=== PATIENT | female | born 1945 | race African-American/Black ===

== ENCOUNTER 2020-02-11 21:24 | Inpatient (IN) | payer OTHER ==
[~2020-02-11] VITALS: Ht 175.3 cm; Wt 123.8 kg
[2020-02-11] MEDS ORDERED: DEXTROSE 5% WATER 1,000 ML IV ONE (23:15)
[2020-02-12] VITALS (57 sets, daily range): BP systolic 124–216; BP diastolic 51–127
[2020-02-12] MEDS ORDERED: LABETALOL 5MG/ML SYR 20 MG/4 ML SYRINGE IV ONE (00:07)
[2020-02-12 01:03] LABS: CLARITY URINE CLEAR (CLEAR); COLOR URINE YELLOW (YELLOW); KETONES URINE NEGATIVE (NEGATIVE); LEUKOCYTE ESTERASE URINE NEGATIVE (NEGATIVE); NITRITE URINE NEGATIVE (NEGATIVE); OCCULT BLOOD URINE NEGATIVE (NEGATIVE); PH URINE 6.5 (4.5-8.0); PROTEIN URINE 2+ (NEGATIVE); SPECIFIC GRAVITY URINE 1.015 (1.005-1.030); UROBILINOGEN URINE 0.2 E.U./dL (0.2-1.0)
[2020-02-12 01:08] LABS: EOSINOPHILS % 0.6 % (0.0-5.0); HEMATOCRIT. 36.3 % (36.0-48.0); HEMOGLOBIN. 11.7 g/dL (12.0-16.0); LYMPHOCYTES % 10.4 % (20.0-50.0); MEAN CORPUSCULAR HEMOGLOBIN 25.4 pg (28.0-32.0); MEAN CORPUSCULAR VOLUME 78.9 fL (81.0-99.0); MEAN PLATELET VOLUME 8.9 fl (7.4-10.4); MONOCYTES % 6.7 % (2.0-8.0); NEUTROPHILS % 81.3 % (40.0-76.0); PLATELET 188 x1000/uL (130-400); RED CELL DISTRIBUTION WIDTH 16.1 % (11.6-14.6)
[2020-02-12 01:09] LABS: CHLORIDE 111 mEq/L (98-107)
[2020-02-12 01:11] LABS: PROTHROMBIN TIME 10.5 sec (9.6-11.0)
[2020-02-12 01:14] LABS: ETHANOL BLOOD < 10 mg/dL
[2020-02-12 01:17] LABS: *AMPHETAMINES SCREEN URINE NEGATIVE (NEGATIVE)
[2020-02-12 01:18] LABS: *BARBITURATES SCREEN URINE NEGATIVE (NEGATIVE); *BENZODIAZEPINES SCREEN URINE NEGATIVE (NEGATIVE); *COCAINE SCREEN URINE NEGATIVE (NEGATIVE); METHADONE URINE SCREEN NEGATIVE (NEGATIVE); PHENCYCLIDINE URINE SCREEN NEGATIVE (NEGATIVE)
[2020-02-12 01:19] LABS: CANNABINOID URINE SCREEN NEGATIVE (NEGATIVE); OPIATES URINE SCREEN NEGATIVE (NEGATIVE)
[2020-02-12] MEDS ORDERED: NICARDIPINE 50 MG in SODIUM CHLORIDE 0.9% 230 ML IV PRN (01:45)
[2020-02-12] MEDS ORDERED: NICARDIPINE 40 MG/200 ML PREMIX 200 ML IV PRN (02:00)
[2020-02-12] MEDS ORDERED: ONDANSETRON HCL 4MG/2ML INJ IV PRN (10:30)
[2020-02-12] MEDS ORDERED: ACETAMINOPHEN 325MG TABLET PO PRN (10:30)
[2020-02-12] MEDS ORDERED: DEXTROSE 50% WATER 50ML SYRINGE IV PRN (10:30)
[2020-02-12] MEDS ORDERED: HYDRALAZINE HCL 100MG TABLET PO SCH (10:30)
[2020-02-12] MEDS: AMLODIPINE 10MG TABLET PO SCH (12:39)
[2020-02-12] MEDS: NICARDIPINE 40MG/200ML PREMIX 200 ML IV PRN ×2 (12:40→18:48)
[2020-02-12] MEDS: BLOOD SUGAR DIAGNOSTIC STRIP TEST SCH ×3 (12:50→21:00)
[2020-02-12] MEDS: HYDRALAZINE HCL 100MG TABLET PO SCH ×2 (14:26→21:52)
[2020-02-12] MEDS: INSULIN LISPRO 100 UNITS/ML SUBCUT SCH ×3 (14:26→21:53)
[2020-02-12] MEDS ORDERED: MINO100T3 PO (17:44)
[2020-02-12] MEDS ORDERED: POTA10TA2 PO (17:44)
[2020-02-12] MEDS ORDERED: FURO20TA4 PO (17:44)
[2020-02-12] MEDS ORDERED: GABA-529 MT (17:44)
[2020-02-12] MEDS ORDERED: ASPI-1497 PO (17:44)
[2020-02-12] MEDS ORDERED: CARV25TA47 MT (17:44)
[2020-02-12] MEDS ORDERED: TRAM50TA3 PO (17:44)
[2020-02-12] MEDS ORDERED: AMLO-337 PO (17:44)
[2020-02-12] MEDS: ENOXAPARIN 30MG/0.3ML SYR SUBCUT SCH (21:52)
[2020-02-12] MEDS ORDERED: NICARDIPINE 50 MG in SODIUM CHLORIDE 0.9% 250 ML IV PRN (23:00)
[2020-02-13] VITALS (64 sets, daily range): BP systolic 139–184; BP diastolic 63–93
[2020-02-13 05:54] LABS: EOSINOPHILS % 1.1 % (0.0-5.0); HEMATOCRIT. 36.5 % (36.0-48.0); HEMOGLOBIN. 11.9 g/dL (12.0-16.0); LYMPHOCYTES % 11.6 % (20.0-50.0); MEAN CORPUSCULAR HEMOGLOBIN 25.5 pg (28.0-32.0); MEAN CORPUSCULAR VOLUME 78.3 fL (81.0-99.0); MEAN PLATELET VOLUME 8.1 fl (7.4-10.4); MONOCYTES % 9.1 % (2.0-8.0); NEUTROPHILS % 77.2 % (40.0-76.0); PLATELET 228 x1000/uL (130-400); RED BLOOD CELL COUNT 4.66 mill/uL (4.2-5.4); RED CELL DISTRIBUTION WIDTH 16.6 % (11.6-14.6)
[2020-02-13 06:00] LABS: CHLORIDE 111 mEq/L (98-107)
[2020-02-13] MEDS: BLOOD SUGAR DIAGNOSTIC STRIP TEST SCH ×3 (06:00→20:30)
[2020-02-13] MEDS: HYDRALAZINE HCL 100MG TABLET PO SCH ×2 (06:00→14:17)
[2020-02-13] MEDS: INSULIN LISPRO 100 UNITS/ML SUBCUT SCH ×4 (08:20→20:28)
[2020-02-13] MEDS: ENOXAPARIN 30MG/0.3ML SYR SUBCUT SCH ×2 (09:17→20:28)
[2020-02-13] MEDS: AMLODIPINE 10MG TABLET PO SCH (09:17)
[2020-02-13] MEDS ORDERED: LOSARTAN POTASSIUM 50 MG TABLET PO SCH ×2 (11:00→17:53)
[2020-02-13] MEDS ORDERED: HYDR100T26 PO (11:17)
[2020-02-13] MEDS ORDERED: LOSA50TA41 MT (11:17)
[2020-02-13] MEDS ORDERED: CLONIDINE 0.1MG TABLET PO PRN (20:15)
== END 2020-02-13 21:30 | disposition short-term general hospital (02) | DRG 305 ==
LOC: ER 21:24 → CVICU 02-12 00:38 → EDBEDREQSVC 02-12 02:03 → EDBEDREQTM 02-12 02:03 → EDBEDREQ 02-12 02:03 → EDBEDREQDT 02-12 02:03 → ENRESERV 02-12 09:16 → 6WST 02-13 17:29
PROVIDERS: ADMIT Internal Medicine; ATTEND Internal Medicine
DX: I16.0 Hypertensive urgency (principal); E44.0 Moderate protein-calorie malnutrition; Z68.41 Body mass index [BMI] 40.0-44.9, adult; E11.649 Type 2 diabetes mellitus with hypoglycemia without coma; E66.9 Obesity, unspecified; E87.8 Other disorders of electrolyte and fluid balance, not elsewhere classified; I10 Essential (primary) hypertension; Z71.3 Dietary counseling and surveillance
CPT/HCPCS: 36415; 71045; 80053; 80305; 80320; 81003; 82962; 83605; 84145; 84484; 85025; 93005; 93970; 97116; 97162; 99285; J1650; J1815; J3490; J7050; J7070; G0480

== ENCOUNTER 2021-12-04 12:17 | Inpatient (IN) | payer OTHER ==
[~2021-12-04] VITALS: Ht 167.6 cm; Wt 115.3 kg
[~2021-12-04 12:17] MED LIST: AMLO-337 PO; ASPI-1497 PO; FURO20TA4 PO; GABA-529 MT; HYDR100T26 PO; LOSA50TA41 MT; MINO100T3 PO; POTA10TA2 PO; TRAM50TA3 PO
[2021-12-04 13:04] LABS: HEMATOCRIT. 33.6 % (36.0-48.0); HEMOGLOBIN. 10.5 g/dL (12.0-16.0); MEAN CORPUSCULAR HEMOGLOBIN 23.6 pg (28.0-32.0); MEAN CORPUSCULAR VOLUME 75.2 fL (81.0-99.0); MEAN PLATELET VOLUME 7.9 fl (7.4-10.4); PLATELET 211 x1000/uL (130-400); RED BLOOD CELL COUNT 4.47 mill/uL (4.2-5.4); RED CELL DISTRIBUTION WIDTH 16.4 % (11.6-14.6)
[2021-12-04 13:12] LABS: CHLORIDE 100 mEq/L (98-107)
[2021-12-04 13:15] LABS: INR 1.1; PROTHROMBIN TIME 11.3 sec (9.6-11.0)
[2021-12-04 13:24] LABS: CREATINE KINASE 21 IU/L (26-192); ETHANOL BLOOD < 10 mg/dL
[2021-12-04] MEDS ORDERED: SODIUM CHLORIDE 0.9% 1,000 ML IV ONE (13:30)
[2021-12-04 13:37] LABS: PLATELET ESTIMATE NORMAL
[2021-12-04 14:09] LABS: BG BASE EXCESS -6.4 mmol/L (-2.0-2.0); BG CARBOXYHEMOGLOBIN 0.3 % (0.5-1.5); BG DEOXYHEMOGLOBIN 5.8 % (0.0-5.0); BG FRACTION INSPIRED OXYGEN 21; BG HCO3 ACT 18.3 mmol/L (22.0-26.0); BG METHEMOGLOBIN 0.3 % (0.0-1.5); BG OXYGEN SATURATION 94.2 % (92.0-98.5); BG OXYHEMOGLOBIN 93.6 % (94.0-97.0); BG PCO2 33.2 mmHg (35.0-45.0); BG PH 7.359 (7.350-7.450); BG PO2 75.8 mmHg (75.0-100.0); BG SAMPLE SITE RIGHT BRACHIAL; BG TOTAL HEMOGLOBIN 10.1 g/dL (12.0-18.0); BG VENT MODE ROOM AIR
[2021-12-04 14:42] LABS: CLARITY URINE CLOUDY (CLEAR); COLOR URINE YELLOW (YELLOW); KETONES URINE TRACE (NEGATIVE); LEUKOCYTE ESTERASE URINE NEGATIVE (NEGATIVE); NITRITE URINE NEGATIVE (NEGATIVE); OCCULT BLOOD URINE NEGATIVE (NEGATIVE); PROTEIN URINE 2+ (NEGATIVE); UROBILINOGEN URINE 0.2 E.U./dL (0.2-1.0)
[2021-12-04 15:53] VITALS: BP 136/59
[2021-12-04 16:02] LABS: *AMPHETAMINES SCREEN URINE NEGATIVE (NEGATIVE); *BARBITURATES SCREEN URINE NEGATIVE (NEGATIVE); *BENZODIAZEPINES SCREEN URINE NEGATIVE (NEGATIVE); *COCAINE SCREEN URINE NEGATIVE (NEGATIVE); CANNABINOID URINE SCREEN NEGATIVE (NEGATIVE); METHADONE URINE SCREEN NEGATIVE (NEGATIVE); OPIATES URINE SCREEN NEGATIVE (NEGATIVE); PHENCYCLIDINE URINE SCREEN NEGATIVE (NEGATIVE)
[2021-12-04 18:00] VITALS: BP 141/69
[2021-12-04] MEDS ORDERED: IPRATROPIUM/ALBUTEROL 0.5-3(2.5)MG/3ML NEB NEB PRN (18:00)
[2021-12-04] MEDS ORDERED: ONDANSETRON HCL 4MG/2ML INJ IV PRN (18:00)
[2021-12-04] MEDS ORDERED: ACETAMINOPHEN 325MG TABLET PO PRN (18:00)
[2021-12-04] MEDS ORDERED: CLONIDINE 0.1MG TABLET PO PRN (18:00)
[2021-12-04] MEDS ORDERED: MAGNESIUM/ALUMINUM HYDROXIDE/SIMETHICONE 30ML UDC PO PRN (18:00)
[2021-12-04] MEDS ORDERED: DOCUSATE SODIUM 100MG CAPSULE PO PRN (18:00)
[2021-12-04] MEDS ORDERED: GUAIFENESIN 200MG/10ML SUGAR FREE UDC PO PRN (18:00)
[2021-12-04] MEDS ORDERED: NA PHOS,M-B/NA PHOS,DI-BA ENEMA 118ML PR PRN (18:00)
[2021-12-04] MEDS: ENOXAPARIN 40MG/0.4ML SYR SUBCUT SCH (19:00)
[2021-12-04] MEDS ORDERED: LEVOFLOXACIN 500MG PREMIX 100 ML IV NR (19:00)
[2021-12-04] MEDS ORDERED: DEXTROSE 50% WATER 50ML SYRINGE IV PRN (19:00)
[2021-12-04 20:00] VITALS: BP 110/76
[2021-12-04] MEDS: BLOOD SUGAR DIAGNOSTIC STRIP TEST SCH (21:00)
[2021-12-04] MEDS: INSULIN LISPRO 100 UNITS/ML SUBCUT SCH (21:00)
[2021-12-04 22:00] VITALS: BP 140/83
[2021-12-05] VITALS (12 sets, daily range): BP systolic 98–159; BP diastolic 52–87
[2021-12-05] MEDS ORDERED: IPRATROPIUM/ALBUTEROL 0.5-3(2.5)MG/3ML NEB HHN SCH
[2021-12-05] MEDS: BLOOD SUGAR DIAGNOSTIC STRIP TEST SCH ×4 (07:24→21:00)
[2021-12-05] MEDS: INSULIN LISPRO 100 UNITS/ML SUBCUT SCH ×4 (07:24→21:00)
[2021-12-05] MEDS ORDERED: LIDOCAINE HCL 1% 10 MG/ML 10ML VIAL ONE (08:23)
[2021-12-05 08:43] LABS: CHLORIDE 104 mEq/L (98-107)
[2021-12-05] MEDS: SODIUM CHLORIDE 0.9% 1,000 ML IV SCH ×2 (10:15→10:40)
[2021-12-05] MEDS: DIPHENHYDRAMINE 50MG/ML VIAL IV PRN (11:40)
[2021-12-05] MEDS: LEVOFLOXACIN 250MG PREMIX 50 ML IV SCH (13:12)
[2021-12-05] MEDS: HYDROCODONE/ACETAMINOPHEN 5/325MG TABLET PO PRN (15:54)
[2021-12-05] MEDS: ENOXAPARIN 40MG/0.4ML SYR SUBCUT SCH (18:37)
[2021-12-05] MEDS ORDERED: NALOXONE HCL 0.4MG/ML VIAL IV PRN (21:30)
[2021-12-06] VITALS (12 sets, daily range): BP systolic 139–172; BP diastolic 69–104
[2021-12-06] MEDS: SODIUM CHLORIDE 0.9% 1,000 ML IV SCH ×2 (03:20→20:00)
[2021-12-06] MEDS: MORPHINE SULFATE 2 MG/ML CPJ (NOT FOR IM USE) IV PRN ×2 (05:25→17:27)
[2021-12-06] MEDS: DIPHENHYDRAMINE 50MG/ML VIAL IV PRN (06:55)
[2021-12-06] MEDS: INSULIN LISPRO 100 UNITS/ML SUBCUT SCH ×4 (07:35→21:00)
[2021-12-06] MEDS: BLOOD SUGAR DIAGNOSTIC STRIP TEST SCH ×4 (07:35→21:00)
[2021-12-06] MEDS: AMLODIPINE 5MG TABLET PO SCH ×2 (08:27→21:36)
[2021-12-06] MEDS: LOSARTAN POTASSIUM 25 MG TABLET PO SCH (08:27)
[2021-12-06] MEDS: HYDROCODONE/ACETAMINOPHEN 5/325MG TABLET PO PRN ×2 (08:29→21:50)
[2021-12-06 08:48] LABS: HEMATOCRIT. 32.9 % (36.0-48.0); HEMOGLOBIN. 10.4 g/dL (12.0-16.0); MEAN CORPUSCULAR HEMOGLOBIN 23.9 pg (28.0-32.0); MEAN CORPUSCULAR VOLUME 75.6 fL (81.0-99.0); MEAN PLATELET VOLUME 8.1 fl (7.4-10.4); PLATELET 191 x1000/uL (130-400); RED BLOOD CELL COUNT 4.35 mill/uL (4.2-5.4); RED CELL DISTRIBUTION WIDTH 16.7 % (11.6-14.6)
[2021-12-06] MEDS: LEVOFLOXACIN 250MG PREMIX 50 ML IV SCH (13:28)
[2021-12-06] MEDS: ENOXAPARIN 40MG/0.4ML SYR SUBCUT SCH (18:50)
[2021-12-06] MEDS ORDERED: LEVOFLOXACIN 250MG PREMIX 50 ML IV SCH (19:00)
[2021-12-06 22:53] LABS: PLATELET ESTIMATE NORMAL
[2021-12-07] VITALS (12 sets, daily range): BP systolic 131–168; BP diastolic 62–92
[2021-12-07] MEDS: BLOOD SUGAR DIAGNOSTIC STRIP TEST SCH ×4 (07:30→21:27)
[2021-12-07] MEDS: INSULIN LISPRO 100 UNITS/ML SUBCUT SCH ×4 (08:00→21:28)
[2021-12-07] MEDS: LOSARTAN POTASSIUM 25 MG TABLET PO SCH (08:49)
[2021-12-07] MEDS: AMLODIPINE 5MG TABLET PO SCH ×2 (08:49→21:27)
[2021-12-07] MEDS: SODIUM CHLORIDE 0.9% 1,000 ML IV SCH (12:18)
[2021-12-07] MEDS: LEVOFLOXACIN 250MG PREMIX 50 ML IV SCH (12:31)
[2021-12-07] MEDS: DIPHENHYDRAMINE 50MG/ML VIAL IV PRN (12:40)
[2021-12-07] MEDS: ASPIRIN 81MG EC TABLET PO SCH (12:44)
[2021-12-07] MEDS: ENOXAPARIN 40MG/0.4ML SYR SUBCUT SCH (17:44)
[2021-12-08] VITALS (13 sets, daily range): BP systolic 128–175; BP diastolic 60–94
[2021-12-08] MEDS: SODIUM CHLORIDE 0.9% 1,000 ML IV SCH (06:07)
[2021-12-08 06:49] LABS: HEMATOCRIT. 32.5 % (36.0-48.0); HEMOGLOBIN. 10.2 g/dL (12.0-16.0); MEAN CORPUSCULAR HEMOGLOBIN 23.6 pg (28.0-32.0); MEAN PLATELET VOLUME 7.4 fl (7.4-10.4); PLATELET 201 x1000/uL (130-400); RED BLOOD CELL COUNT 4.33 mill/uL (4.2-5.4); RED CELL DISTRIBUTION WIDTH 16.6 % (11.6-14.6)
[2021-12-08] MEDS: DIPHENHYDRAMINE 50MG/ML VIAL IV PRN (07:01)
[2021-12-08] MEDS: BLOOD SUGAR DIAGNOSTIC STRIP TEST SCH ×4 (07:43→21:04)
[2021-12-08] MEDS: INSULIN LISPRO 100 UNITS/ML SUBCUT SCH ×4 (08:14→21:10)
[2021-12-08] MEDS: AMLODIPINE 5MG TABLET PO SCH ×2 (08:17→21:12)
[2021-12-08] MEDS: ASPIRIN 81MG EC TABLET PO SCH (08:18)
[2021-12-08] MEDS: LOSARTAN POTASSIUM 25 MG TABLET PO SCH (08:18)
[2021-12-08 09:00] LABS: PLATELET ESTIMATE NORMAL
[2021-12-08] MEDS: LEVOFLOXACIN 250MG PREMIX 50 ML IV SCH (13:13)
[2021-12-08] MEDS: ENOXAPARIN 40MG/0.4ML SYR SUBCUT SCH (18:19)
== END 2021-12-08 23:53 | disposition short-term general hospital (02) | DRG 871 ==
LOC: ER 12:37 → 5EST 14:11 → EDBEDREQ 14:23 → ENRESERV 14:39
PROVIDERS: ADMIT Internal Medicine; ATTEND Internal Medicine
PROC: 05HY33Z Insertion of Infusion Device into Upper Vein, Percutaneous Approach (ICD-10-PCS; principal; 2021-12-05)
PROC: B54MZZA Ultrasonography of Right Upper Extremity Veins, Guidance (ICD-10-PCS; 2021-12-05)
DX: A41.9 Sepsis, unspecified organism (principal); G93.41 Metabolic encephalopathy; N17.0 Acute kidney failure with tubular necrosis; J96.01 Acute respiratory failure with hypoxia; U07.1 COVID-19; E46 Unspecified protein-calorie malnutrition; Z68.41 Body mass index [BMI] 40.0-44.9, adult; C49.9 Malignant neoplasm of connective and soft tissue, unspecified; N39.0 Urinary tract infection, site not specified; G47.33 Obstructive sleep apnea (adult) (pediatric); I11.0 Hypertensive heart disease with heart failure; I50.9 Heart failure, unspecified; G90.8 Other disorders of autonomic nervous system; D50.9 Iron deficiency anemia, unspecified; R91.1 Solitary pulmonary nodule; E86.0 Dehydration; E11.9 Type 2 diabetes mellitus without complications; Z88.8 Allergy status to other drugs, medicaments and biological substances; Z88.0 Allergy status to penicillin; Z92.21 Personal history of antineoplastic chemotherapy; Z71.6 Tobacco abuse counseling; Z79.4 Long term (current) use of insulin
CPT/HCPCS: 36415; 36573; 36600; 71045; 71250; 74018; 80048; 80053; 80305; 80320; 81003; 82140; 82375; 82550; 82805; 82962; 83036; 83605; 83735; 84484; 85025; 87426; 93005; 93306; 99291; C1725; J1200; J1650; J1815; J1956; J2270; J3490; J7030; G0480